=== PATIENT | female | born 2005 | race African-American/Black ===

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

== ENCOUNTER 2024-07-11 20:57 | Emergency (ER) | payer MEDICARE, BC ==
[~2024-07-11] VITALS: Ht 167.6 cm; Wt 101.6 kg
[~2024-07-11 20:57] MED LIST changes: +BACTRIM DS TAB1 EACH PO; +IBUPROFEN400 MG PO; +ONDANSETRON ODT4 MG PO
[2024-07-11 21:01] VITALS: PULSE 95; RESP 19; TEMP 98.7
[2024-07-11] MEDS ORDERED: DIPHENHYDRAMINE25 M2 PO (22:07)
[2024-07-11] MEDS ORDERED: NASACORT16.9 ML (22:07)
[2024-07-11 22:14] VITALS: BP 144/86; PULSE 95; RESP 19; TEMP 98.7; O2SAT 98
== END 2024-07-11 22:18 | disposition home or self-care (01) ==
LOC: FSED 21:55
DX: J30.9 Allergic rhinitis, unspecified (principal); R09.89 Other specified symptoms and signs involving the circulatory and respiratory systems; R11.2 Nausea with vomiting, unspecified; R05.9 Cough, unspecified; Z33.1 Pregnant state, incidental
CPT/HCPCS: 0223U; 87400; 99283